=== PATIENT | female | born 1985 | race Caucasian/White ===

== ENCOUNTER 2016-12-20 22:57 | Emergency (ER) | payer SELFPAY ==
[~2016-12-20] VITALS: Ht 160 cm; Wt 86.2 kg
[~2016-12-20 22:57] MED LIST: ALBUTEROL0.09 MG/A2 INH; CIPRO250 MG PO; CORDROL20 MG PO; DOXYCYCLINE100 M2 PO; LEVAQUIN LEVA-750 MG PO; MEDROL DOSEPAK4 MG PO; METICORTEN1 MG PO; ULTRAM50 MG PO; VIBRAMYCIN100 MG PO; ZOFRAN ODT4 MG PO
[2016-12-20] MEDS ORDERED: Motrin,Rufen800 MG PO (23:58)
== END 2016-12-21 00:39 | disposition home or self-care (01) ==
LOC: ED 22:57
DX: S90.31XA Contusion of right foot, initial encounter (principal); F17.200 Nicotine dependence, unspecified, uncomplicated; Z88.0 Allergy status to penicillin; Z90.49 Acquired absence of other specified parts of digestive tract; W20.8XXA Other cause of strike by thrown, projected or falling object, initial encounter; Y93.89 Activity, other specified; Y92.9 Unspecified place or not applicable; Y99.9 Unspecified external cause status

== ENCOUNTER 2018-04-19 17:46 | Emergency (ER) | payer OTHER ==
[~2018-04-19] VITALS: Ht 160 cm; Wt 88.0 kg
[~2018-04-19 17:46] MED LIST changes: +Motrin,Rufen800 MG PO
[2018-04-19] MEDS ORDERED: ANAPROX DS550 MG PO (19:25)
== END 2018-04-19 19:30 | disposition home or self-care (01) ==
LOC: ED 17:46
DX: M25.512 Pain in left shoulder (principal); R20.0 Anesthesia of skin; Z88.0 Allergy status to penicillin; Z90.49 Acquired absence of other specified parts of digestive tract

== ENCOUNTER 2019-04-14 13:42 | Emergency (ER) | payer OTHER ==
[~2019-04-14] VITALS: Wt 95.7 kg
[~2019-04-14 13:42] MED LIST changes: +ANAPROX DS550 MG PO
[2019-04-14 16:09] LABS: BASO # 0.1 10*3/uL (0.0-0.1); BASO % 0.4 % (0.0-1.0); EOS # 0.4 10*3/uL (0.0-0.4); EOS % 3.1 % (1.0-4.0); HEMATOCRIT 39.5 % (37.0-47.0); LYMPH # 4.3 10*3/uL (1.3-4.4); LYMPH % 36.1 % (27.0-41.0); MEAN CELL VOLUME 90.6 fl (81.0-99.0); MEAN CORPUSCULAR HGB 29.8 pg (27.0-31.0); MEAN CORPUSCULAR HGB CONC 32.9 g/dl (33.0-37.0); MEAN PLATELET VOLUME 8.9 fl (9.6-12.3); MONO # 0.6 10*3/uL (0.1-1.0); MONO % 4.9 % (3.0-9.0); NEUT # 6.6 10*3/uL (2.3-7.9); NEUT % 55.2 % (47.0-73.0); PLATELET COUNT AUTOMATED 390 10*3/uL (130-400); RED BLOOD COUNT 4.36 10*6/uL (4.10-5.10); RED CELL DISTRI WIDTH 13.2 % (0-14.5); WHITE BLOOD COUNT 11.9 10*3/uL (4.8-10.8)
[2019-04-14 16:19] LABS: INTERNATIONAL NORM RATIO 0.9 (2.0-3.5)
[2019-04-14 16:26] LABS: ALBUMIN 3.2 gm/dl (3.1-4.5); ALKALINE PHOSPHATASE 72 U/L (45-117); BUN 6 mg/dl (7-24); CHLORIDE 106 mmol/L (98-107); CREATININE 0.71 mg/dL (0.55-1.02); POTASSIUM 3.9 mmol/L (3.5-5.1); SGOT/AST 15 IU/L (3-35); SGPT/ALT 28 U/L (12-78); SODIUM 138 mmol/L (136-145)
== END 2019-04-14 16:58 | disposition home or self-care (01) ==
LOC: ED 13:42
PROVIDERS: Nurse Practitioner Family
DX: O90.89 Other complications of the puerperium, not elsewhere classified (principal); O99.335 Smoking (tobacco) complicating the puerperium; R51 Headache; H53.8 Other visual disturbances; M25.561 Pain in right knee; M25.562 Pain in left knee; M79.89 Other specified soft tissue disorders; F17.200 Nicotine dependence, unspecified, uncomplicated; Z86.718 Personal history of other venous thrombosis and embolism; Z88.0 Allergy status to penicillin; X58.XXXA Exposure to other specified factors, initial encounter; Y93.89 Activity, other specified; Y92.89 Other specified places as the place of occurrence of the external cause; Y99.0 Civilian activity done for income or pay

== ENCOUNTER 2019-05-17 19:12 | Inpatient (IN) | payer OTHER ==
[~2019-05-17] VITALS: Ht 160 cm; Wt 101.2 kg
[2019-05-17 19:15] VITALS: BP 130/76
[2019-05-17 20:07] LABS: BASO % 0.4 % (0.0-1.0); EOS # 0.3 10*3/uL (0.0-0.4); EOS % 2.6 % (1.0-4.0); HEMATOCRIT 39.9 % (37.0-47.0); LYMPH # 4.3 10*3/uL (1.3-4.4); LYMPH % 42.7 % (27.0-41.0); MEAN CELL VOLUME 90.7 fl (81.0-99.0); MEAN CORPUSCULAR HGB 29.5 pg (27.0-31.0); MEAN CORPUSCULAR HGB CONC 32.6 g/dl (33.0-37.0); MEAN PLATELET VOLUME 8.9 fl (9.6-12.3); MONO # 0.6 10*3/uL (0.1-1.0); MONO % 6.1 % (3.0-9.0); NEUT # 4.8 10*3/uL (2.3-7.9); PLATELET COUNT AUTOMATED 343 10*3/uL (130-400); RED CELL DISTRI WIDTH 13.3 % (0-14.5)
[2019-05-17 20:22] LABS: ALBUMIN 3.3 gm/dl (3.1-4.5); ALKALINE PHOSPHATASE 66 U/L (45-117); BUN 12 mg/dl (7-24); CHLORIDE 107 mmol/L (98-107); CREATININE 0.78 mg/dL (0.55-1.02); POTASSIUM 4.3 mmol/L (3.5-5.1); SGOT/AST 13 IU/L (3-35); SGPT/ALT 22 U/L (12-78); SODIUM 139 mmol/L (136-145); TOTAL PROTEIN 7.2 gm/dL (6.4-8.2)
--- NOTE | 2019-05-17 22:54 | NUR ---
REPORT TO LAIRD RN
--- NOTE | 2019-05-17 23:12 | NUR ---
PATIENT RESTING IN ROOM WITH NO S/S OF DISTRESS NOTED. WILL CONTINUE TO MONITOR.
--- NOTE | 2019-05-18 02:20 | NUR ---
PATIENT RESTING IN ROOM WITH LIGHTS DIMMED. NO VOICED COMPLAINTS AT THIS TIME. CALL LIGHT WITHIN REACH, BED IN LOW, SIDERAILS UP X2. WILL CONTINUE TO MONITOR.
[2019-05-18 06:33] LABS: BASO % 0.1 % (0.0-1.0); HEMATOCRIT 40.1 % (37.0-47.0); HEMOGLOBIN 12.9 g/dl (12.0-16.0); LYMPH # 1.4 10*3/uL (1.3-4.4); LYMPH % 14.1 % (27.0-41.0); MEAN CELL VOLUME 91.3 fl (81.0-99.0); MEAN CORPUSCULAR HGB 29.4 pg (27.0-31.0); MEAN CORPUSCULAR HGB CONC 32.2 g/dl (33.0-37.0); MEAN PLATELET VOLUME 9.2 fl (9.6-12.3); MONO # 0.1 10*3/uL (0.1-1.0); NEUT # 8.2 10*3/uL (2.3-7.9); NEUT % 84.4 % (47.0-73.0); PLATELET COUNT AUTOMATED 327 10*3/uL (130-400); RED BLOOD COUNT 4.39 10*6/uL (4.10-5.10); RED CELL DISTRI WIDTH 13.3 % (0-14.5); WHITE BLOOD COUNT 9.8 10*3/uL (4.8-10.8)
[2019-05-18 07:04] LABS: ALBUMIN 3.3 gm/dl (3.1-4.5); BUN 11 mg/dl (7-24); CHLORIDE 108 mmol/L (98-107); POTASSIUM 4.3 mmol/L (3.5-5.1); SODIUM 136 mmol/L (136-145)
[2019-05-18 07:11] LABS: ACT PARTIAL THROMBO TIME 26.4 SECONDS (20.0-32.1); INTERNATIONAL NORM RATIO 0.9 (2.0-3.5)
[2019-05-18 07:14] LABS: ALKALINE PHOSPHATASE 64 U/L (45-117); CHOLESTEROL 241 mg/dL (<200); FREE T4 1.06 ng/dl (0.76-1.46); HDL CHOLESTEROL 32 mg/dl (40-60); LDL CHOLESTEROL 196 mg/dL (9-159); PHOSPHOROUS 2.5 mg/dL (2.5-4.9); SGOT/AST 13 IU/L (3-35); SGPT/ALT 23 U/L (12-78); THYROID STIM HORMONE (HS) 0.766 uIU/ml (0.358-4.75); TOTAL PROTEIN 7.2 gm/dL (6.4-8.2); TRIGLYCERIDES 67 mg/dl (<150); VLDL CHOLESTEROL 13 mg/dL (6-40)
[2019-05-18 07:23] LABS: VITAMIN D, 25-HYDROXY 15.2 ng/mL (30-100)
[2019-05-18 07:36] VITALS: BP 97/51
--- NOTE | 2019-05-18 07:39 | NUR ---
REPORT RECEIVED AT 0710 FROM SMILEY SAEED. PT IS RESTING NOW. SHE IS AWAKE AND ALERT. HER VOICE SOUNDS HOARSE. OCCAISONAL COUGH IS NOTED. RESPIRATIONS ARE NON-LABORED. SHE WILL BE ADMITTED,WAITING FOR BED ASSIGNMENT. PT IS AWARE OF THIS. KAYLEE SAEDE
--- NOTE | 2019-05-18 09:00 | NUR ---
Crime Scene Evidence Technician in to talk to patient. Patient states lives at home with alone. There are few steps in the home. Physician: none Pharmacy: [facility] Home health services: none Patient's level of ADLs: INDEPENDENT Patient has working utilities: all working DME: none Follow-up physician's appointment after d/c: will be made by hospitalist nurse director upon discharge Does patient want to access PORTAL?: no Discharge plan discussed with patient, she states she lives at home, is independent in adls and ambulation, works, drives, she states she will return home when able and denies any home needs, discussed with her not having a regular doctor and she stated she was going to come to the resident clinic, . JESSICA SPRINGER
[2019-05-18 09:15] VITALS: BP 131/82
--- NOTE | 2019-05-18 09:15 | NUR ---
A 34, admitted to , under the services of TRINIDAD Berger DO with a diagnosis of REACTIVE AIRWAY DISEASE, BRONCHITIS. Chief complaint is COUGH, CHEST DISCONFORT, FEVER AT HOME 101.0, DYSPNEA X5 DAYS. Patient arrived via stretcher from ER. Monitor applied. Initial assessment completed. Vital signs taken and recorded. TRINIDAD BERGER DO notified of admission to the unit. Orders received. See assessment for past medical history, medications and allergies. Patient and/or family oriented to unit. [address] visitation policy reviewed. Clothing/patient valuable form completed. DALLIN GATES
[2019-05-18 12:00] VITALS: BP 125/69
--- NOTE | 2019-05-18 14:36 | NUR ---
GIVEN TESSALON PEARLS FOR COMPLAINTS OF A COUGH
[2019-05-18 16:00] VITALS: BP 145/89
--- NOTE | 2019-05-18 19:29 | NUR ---
24 HR CHART CHECK COMPLETE.
[2019-05-18 20:00] VITALS: BP 133/60
--- NOTE | 2019-05-18 20:23 | NUR ---
PT ADMINISTERED PRN NORCO FOR PAIN AND TESSALON PERLES FOR C/O COUGH. WILL MONITOR FOR EFFECTIVENESS.
--- NOTE | 2019-05-18 21:00 | NUR ---
PT REPORTS RELIEF FROM PAIN AND EXPERIENCING LESS COUGHING AT THIS TIME. PRN MEDICATION EFFECTIVE.
[2019-05-19] VITALS: BP 108/61
--- NOTE | 2019-05-19 05:28 | NUR ---
PT IS ASLEEP IN BED AT THIS TIME. NO DISTRESS NOTED. RESPS ARE EASY AND NONLABORED. BED IS LOW, CALL LIGHT WITHIN REACH. WILL CONTINUE TO MONITOR.
[2019-05-19 08:00] VITALS: BP 129/63
--- NOTE | 2019-05-19 09:00 | NUR ---
case management visits with patient, she states she will return home when medically stable, denies any home needs
--- NOTE | 2019-05-19 09:15 | NUR ---
DR. WAGNER NOTIFIED OF CONSULT.
--- NOTE | 2019-05-19 10:42 | NUR ---
Another Multi-Disciplinary Team meeting was held on 05/19/19, for the purpose of discharge planning. The patient was referred to the following services for follow-up: patient not ready for discharge, Dr Haro consulted with JESSICA Renteria
[2019-05-19 12:00] VITALS: BP 123/73
[2019-05-19 16:00] VITALS: BP 112/50
[2019-05-19 20:00] VITALS: BP 123/61
[2019-05-20] VITALS: BP 116/65
[2019-05-20 08:00] VITALS: BP 128/86
--- NOTE | 2019-05-20 09:00 | NUR ---
case management visits with patient, she states she will be returning home when medically stable, patient denies any home needs
[2019-05-20] MEDS ORDERED: DOXYCYCLINE100 M3 PO (09:35)
[2019-05-20] MEDS ORDERED: VITAMIN D32000 UNI1 PO (09:35)
[2019-05-20] MEDS ORDERED: PREDNISONE10 MG PO (09:35)
[2019-05-20] MEDS ORDERED: ATORVASTATIN CA20 M1 PO (09:35)
--- NOTE | 2019-05-20 10:59 | NUR ---
PT DISCHARGED AT THIS TIME. IV REMOVED AND PRESSURE DRESSING APPLIED. VERBALIZED UNDERSTANDING OF DISCHARGE INSTRUCTIONS.
[2019-05-22 23:17] LABS: ADENOVIRUS Negative (Negative); INFLUENZA A Negative (Negative); INFLUENZA B Negative (Negative); METAPNEUMOVIRUS Negative (Negative); PARAINFLUENZA 1 Negative (Negative); PARAINFLUENZA 2 Negative (Negative); PARAINFLUENZA 3 Negative (Negative); RHINOVIRUS Positive (Negative); RSV A Negative (Negative); RSV B Negative (Negative)
== END 2019-05-20 10:59 | disposition home or self-care (01) | DRG 202 ==
LOC: ED 19:12 → 4E 21:21 → EDHOLD 21:21 → 4E 05-18 06:34
PROVIDERS: Hospitalist; Internal Medicine; Internal Medicine Critical Care Medicine; ADMIT Internal Medicine
DX: J20.9 Acute bronchitis, unspecified (principal); R65.10 Systemic inflammatory response syndrome (SIRS) of non-infectious origin without acute organ dysfunction; J45.909 Unspecified asthma, uncomplicated; E83.41 Hypermagnesemia; Z71.6 Tobacco abuse counseling; E66.9 Obesity, unspecified; R00.0 Tachycardia, unspecified; E55.9 Vitamin D deficiency, unspecified; F17.210 Nicotine dependence, cigarettes, uncomplicated; R07.89 Other chest pain; R73.03 Prediabetes; E78.5 Hyperlipidemia, unspecified; Z88.0 Allergy status to penicillin; Z98.891 History of uterine scar from previous surgery; Z90.49 Acquired absence of other specified parts of digestive tract; Z68.30 Body mass index [BMI] 30.0-30.9, adult

== ENCOUNTER 2020-03-26 12:59 | Emergency (ER) | payer OTHER ==
[~2020-03-26] VITALS: Ht 160 cm; Wt 100.2 kg
[~2020-03-26 12:59] MED LIST changes: +ATORVASTATIN CA20 M1 PO; +DOXYCYCLINE100 M3 PO; +PREDNISONE10 MG PO; +VITAMIN D32000 UNI1 PO
[2020-03-26 13:37] LABS: BASO # 0.1 10*3/uL (0.0-0.1); BASO % 0.6 % (0.0-1.0); EOS # 0.2 10*3/uL (0.0-0.4); EOS % 2.7 % (1.0-4.0); HEMATOCRIT 41.4 % (37.0-47.0); LYMPH # 3.3 10*3/uL (1.3-4.4); LYMPH % 38.7 % (27.0-41.0); MEAN CELL VOLUME 90.2 fl (81.0-99.0); MEAN CORPUSCULAR HGB CONC 32.1 g/dl (33.0-37.0); MEAN PLATELET VOLUME 8.7 fl (9.6-12.3); MONO # 0.5 10*3/uL (0.1-1.0); MONO % 5.4 % (3.0-9.0); NEUT # 4.5 10*3/uL (2.3-7.9); NEUT % 52.5 % (47.0-73.0); PLATELET COUNT AUTOMATED 359 10*3/uL (130-400); RED BLOOD COUNT 4.59 10*6/uL (4.10-5.10); RED CELL DISTRI WIDTH 12.7 % (0-14.5); WHITE BLOOD COUNT 8.5 10*3/uL (4.8-10.8)
[2020-03-26 13:44] LABS: BILIRUBIN NEGATIVE (NEGATIVE); BLOOD NEGATIVE (NEGATIVE); CLARITY SL CLOUDY (CLEAR); COLOR YELLOW (YELLOW); GLUCOSE NEGATIVE (NEGATIVE); KETONE NEGATIVE (NEGATIVE); LEUKO ESTERASE TRACE (NEGATIVE); NITRITE POSITIVE (NEGATIVE); PH 7.5 (5.0-9.0); SPECIFIC GRAVITY 1.015 (1.005-1.030); UROBILINOGEN 0.2 E.U./dl (0.2-1.0)
[2020-03-26 13:49] LABS: BACTERIA 4+; MUCOUS 1+; WBC 21-30 wbc/hpf (0-5)
[2020-03-26 13:56] LABS: ALBUMIN 3.1 gm/dl (3.1-4.5); ALKALINE PHOSPHATASE 78 U/L (45-117); BUN 7 mg/dl (7-24); CHLORIDE 105 mmol/L (98-107); CREATININE 0.93 mg/dL (0.55-1.02); LIPASE 126 U/L (73-393); POTASSIUM 3.8 mmol/L (3.5-5.1); SGOT/AST 13 IU/L (3-35); SGPT/ALT 30 U/L (12-78); SODIUM 138 mmol/L (136-145); TOTAL PROTEIN 7.1 gm/dL (6.4-8.2)
[2020-03-26] MEDS ORDERED: MACROBID100 M1 PO (15:10)
== END 2020-03-26 15:12 | disposition home or self-care (01) ==
LOC: ED 12:59
PROVIDERS: Nurse Practitioner Family
DX: N39.0 Urinary tract infection, site not specified (principal); Z88.0 Allergy status to penicillin; Z79.899 Other long term (current) drug therapy

== ENCOUNTER → 2025-02-07 | Outpatient (CLI) | payer OTHER ==
[~2025-02-07] MED LIST changes: +MACROBID100 M1 PO
[2025-02-09 04:06] LABS: TB1 Ag VALUE 0.11 IU/mL (.)
== END | disposition home or self-care (01) ==
LOC: LAB 09:10
PROVIDERS: ATTEND Nurse Practitioner Family
DX: Z02.0 Encounter for examination for admission to educational institution (principal)